=== PATIENT | female | born 1995 | race Caucasian/White ===

== ENCOUNTER → 2017-06-10 | Outpatient (CLI) | payer OTHER ==
[2017-06-10 19:25] LABS: BASO % 0.3 % (0.0-1.0); EOS # 0.1 10^3/uL (0.0-0.50); EOS % 0.9 % (0.0-3.0); HEMATOCRIT 35.2 % (36.0-47.0); HEMOGLOBIN 11.2 g/dl (12.0-16.0); IMMATURE GRANULOCYTE # 0.1 10^3/uL (0-0); IMMATURE GRANULOCYTE % 0.6 % (0-0); LYMPH # 2.2 10^3/uL (1.5-6.5); LYMPH % 20.5 % (24.0-44.0); MEAN CORPUSCULAR HEMOGLOBIN 28.9 pg (27.0-33.0); MEAN CORPUSCULAR HGB CONC 31.8 g/dl (32.0-36.5); MONO # 0.6 10^3/uL (0.0-0.8); MONO % 5.2 % (0.0-5.0); NEUTROPHILS # 7.8 10^3/uL (1.8-7.7); NEUTROPHILS % 72.5 % (36.0-66.0); PLATELET COUNT, AUTOMATED 211 10^3/uL (150-450); RED BLOOD COUNT 3.87 10^6/uL (4.00-5.40); RED CELL DISTRIBUTION WIDTH 12.4 % (11.5-14.5); WHITE BLOOD COUNT 10.8 10^3/uL (4.0-10.0)
[2017-06-10 19:47] LABS: GLUCOSE CHALLENGE TEST 1 HOUR 108 MG/DL (LESS THAN 140)
== END ==
LOC: M SMT 13:29
DX: Z34.83 Encounter for supervision of other normal pregnancy, third trimester (principal)
CPT/HCPCS: 82950

== ENCOUNTER → 2017-07-10 | Outpatient (CLI) | payer OTHER ==
[2017-07-12 10:37] LABS: HEPATITIS C VIRUS ABY INDEX 0.1 INDEX (<0.8)
== END ==
LOC: M SMT 14:40
DX: Z36.89 Encounter for other specified antenatal screening (principal); Z3A.00 Weeks of gestation of pregnancy not specified
CPT/HCPCS: 86803

== ENCOUNTER → 2017-08-01 | Outpatient (REF) | payer OTHER | LOC: M LAB REF 17:15 | DX: Z34.83 Encounter for supervision of other normal pregnancy, third trimester (principal); Z36.85 Encounter for antenatal screening for Streptococcus B ==

== ENCOUNTER 2017-08-16 03:21 | Inpatient (IN) | payer OTHER ==
[2017-08-16] MEDS ORDERED: LR 1,000 ML IV (04:09)
[2017-08-16 04:35] LABS: HEMATOCRIT 33.1 % (36.0-47.0); HEMOGLOBIN 10.8 g/dl (12.0-15.5); MEAN CORPUSCULAR HGB CONC 32.6 g/dl (32.0-36.5); MEAN CORPUSCULAR VOLUME 85.8 fl (80.0-96.0); PLATELET COUNT, AUTOMATED 152 10^3/uL (150-450); RED BLOOD COUNT 3.86 10^6/uL (4.00-5.40); RED CELL DISTRIBUTION WIDTH 12.8 % (11.5-14.5); WHITE BLOOD COUNT 11.2 10^3/uL (4.0-10.0)
[2017-08-16 10:06] LABS: HBSAG L&D NEGATIVE (NEGATIVE)
[2017-08-16] MEDS: OXYTOCIN INJ 10 UNITS/ML VIAL (J2590) IM (13:46)
[2017-08-16] MEDS ORDERED: DIBUCAINE 1% OINTMENT 30GM TOP (14:00)
[2017-08-16] MEDS ORDERED: ANUSOL HC CREAM 30GM TOP (14:00)
[2017-08-16] MEDS ORDERED: ONDANSETRON 4MG/2ML VIAL (J2405) IV (14:00)
[2017-08-16] MEDS ORDERED: DOCUSATE SODIUM 100 MG CAP PO (14:00)
[2017-08-16] MEDS: ACETAMINOPHEN 500 MG TAB PO ×2 (14:10→21:20)
[2017-08-16] MEDS ORDERED: METHYLERGONOVINE MALEATE 0.2 MG/ML VIAL (J2210) As Ordered (14:40)
[2017-08-16] MEDS: METHYLERGONOVINE MALEATE 0.2 MG/ML VIAL (J2210) IM (14:47)
[2017-08-16] MEDS: LACTATED RINGER'S 1000 ML IV (16:41)
[2017-08-16] MEDS: PRENATAL VITAMINS CHEWABLE TABLET PO (17:08)
[2017-08-16] MEDS: METHYLERGONOVINE MALEATE 0.2 MG TAB PO ×2 (17:14→21:20)
[2017-08-16] MEDS: IBUPROFEN 800 MG TAB PO (18:04)
[2017-08-17] MEDS: IBUPROFEN 800 MG TAB PO ×3 (01:23→17:21)
[2017-08-17] MEDS: METHYLERGONOVINE MALEATE 0.2 MG TAB PO ×2 (01:23→05:21)
[2017-08-17] MEDS: ACETAMINOPHEN 500 MG TAB PO (05:21)
[2017-08-17] MEDS: RHOGAM 300 MCG (1500 IU) INJ (J2790) IM (07:17)
[2017-08-17] MEDS: MEASLES,MUMPS,RUBELLA VACCINE INJ (MMR-II) (90707) SC (07:17)
[2017-08-17] MEDS: PRENATAL VITAMINS CHEWABLE TABLET PO (09:09)
[2017-08-18] MEDS: IBUPROFEN 800 MG TAB PO (06:22)
[2017-08-18] MEDS: PRENATAL VITAMINS CHEWABLE TABLET PO (08:52)
== END 2017-08-18 11:50 | disposition home or self-care (01) | DRG 775 ==
LOC: M LDO 03:21 → M LDI 04:09 → M OBS 16:44
PROVIDERS: Obstetrics & Gynecology
PROC: 10E0XZZ Delivery of Products of Conception, External Approach (ICD-10-PCS; principal; 2017-08-16)
DX: O80 Encounter for full-term uncomplicated delivery (principal); Z3A.38 38 weeks gestation of pregnancy; Z37.0 Single live birth

== ENCOUNTER → 2017-10-04 | Outpatient (CLI) | payer OTHER ==
[2017-10-04 18:12] LABS: HEMATOCRIT 38.7 % (36.0-47.0); HEMOGLOBIN 11.9 g/dl (12.0-15.5); MEAN CORPUSCULAR HEMOGLOBIN 26.6 pg (27.0-33.0); MEAN CORPUSCULAR HGB CONC 30.7 g/dl (32.0-36.5); MEAN CORPUSCULAR VOLUME 86.4 fl (80.0-96.0); PLATELET COUNT, AUTOMATED 255 10^3/uL (150-450); RED BLOOD COUNT 4.48 10^6/uL (4.00-5.40); RED CELL DISTRIBUTION WIDTH 13.7 % (11.5-14.5); WHITE BLOOD COUNT 8.2 10^3/uL (4.0-10.0)
[2017-10-04 18:45] LABS: THYROID STIMULATING HORMONE 0.355 uIU/ML (0.358-3.740)
== END ==
LOC: M SMT 13:56
DX: R53.83 Other fatigue (principal)
CPT/HCPCS: 84443

== ENCOUNTER 2017-10-29 13:21 | Emergency (ER) | payer OTHER ==
[2017-10-29] MEDS: NORCO, ANEXSIA 5/325MG TABLET (HYDROcodone/ACETAMINOPHEN) PO (14:25)
== END 2017-10-29 14:52 | disposition home or self-care (01) ==
LOC: M ED 13:21
DX: S80.11XA Contusion of right lower leg, initial encounter (principal); W23.0XXA Caught, crushed, jammed, or pinched between moving objects, initial encounter; Y92.410 Unspecified street and highway as the place of occurrence of the external cause; N80.9 Endometriosis, unspecified; F41.9 Anxiety disorder, unspecified; F33.9 Major depressive disorder, recurrent, unspecified; Z79.899 Other long term (current) drug therapy; Z88.0 Allergy status to penicillin; Z88.1 Allergy status to other antibiotic agents; Z88.2 Allergy status to sulfonamides; Z88.5 Allergy status to narcotic agent; Z88.8 Allergy status to other drugs, medicaments and biological substances
CPT/HCPCS: 73552

== ENCOUNTER → 2017-12-04 | Outpatient (REF) | payer OTHER | LOC: M LAB REF 17:28 | DX: J02.9 Acute pharyngitis, unspecified (principal) ==

== ENCOUNTER 2018-05-13 11:59 | Emergency (ER) | payer OTHER ==
[~2018-05-13] VITALS: Ht 167.6 cm; Wt 65.9 kg
[~2018-05-13 11:59] MED LIST: IBUP-1022 PO; IBUP-1114 PO; MAPA500T17 PO; PRENTAB9 PO; TYLE500T78 PO; ZOLO50TA PO
[2018-05-13] MEDS ORDERED: SODIUM BICARBONATE 4 % INJ 2.4MEQ 5 ML VIAL (THIS HAS A PRESERVATIVE) SC ONE (12:45)
[2018-05-13] MEDS ORDERED: LIDOCAINE 1% MDV 20ML VIAL SC ONE (12:45)
[2018-05-13] MEDS ORDERED: ADACEL/BOOSTRIX VACCINE (DIPHTH/PERTUSS/ACELL/TETANUS)0.5ML SYR (90715) IM ONE (12:45)
[2018-05-13] MEDS ORDERED: IBUP80TA PO (13:41)
[2018-05-13] MEDS ORDERED: IBUPROFEN 800 MG TAB PO ONE (13:45)
[2018-05-13 13:48] VITALS: BP 111/64
== END 2018-05-13 14:01 | disposition home or self-care (01) ==
LOC: M ED 11:59
DX: S61.012A Laceration without foreign body of left thumb without damage to nail, initial encounter (principal); W26.0XXA Contact with knife, initial encounter; Y92.098 Other place in other non-institutional residence as the place of occurrence of the external cause; Z88.2 Allergy status to sulfonamides; Z88.1 Allergy status to other antibiotic agents; Z88.5 Allergy status to narcotic agent; Z88.0 Allergy status to penicillin

== ENCOUNTER → 2018-09-18 | Outpatient (CLI) | payer OTHER ==
[~2018-09-18] MED LIST changes: +IBUP80TA PO; -MAPA500T17 PO; +MAPA500T2 PO
[2018-09-18 17:50] LABS: BASO % 0.5 % (0.0-1.0); EOS # 0.1 10^3/uL (0.0-0.50); EOS % 1.6 % (0.0-3.0); HEMOGLOBIN 11.8 g/dl (12.0-15.5); LYMPH # 2.5 10^3/uL (1.5-6.5); LYMPH % 33.7 % (24.0-44.0); MEAN CORPUSCULAR HEMOGLOBIN 27.5 pg (27.0-33.0); MEAN CORPUSCULAR HGB CONC 31.9 g/dl (32.0-36.5); MEAN CORPUSCULAR VOLUME 86.2 fl (80.0-96.0); MONO # 0.5 10^3/uL (0.0-0.8); MONO % 7.3 % (0.0-5.0); NEUTROPHILS # 4.2 10^3/uL (1.8-7.7); NEUTROPHILS % 56.8 % (36.0-66.0); PLATELET COUNT, AUTOMATED 282 10^3/uL (150-450); RED BLOOD COUNT 4.29 10^6/uL (4.00-5.40); WHITE BLOOD COUNT 7.4 10^3/uL (4.0-10.0)
[2018-09-18 18:01] LABS: INR 1.01; PROTHROMBIN TIME 13.4 SECONDS (12.1-14.4)
[2018-09-18 18:02] LABS: PARTIAL THROMBOPLASTIN TIME 33.6 SECONDS (25.4-37.6)
[2018-09-18 18:04] LABS: COLLAGEN EPINEPHRINE 194 SECONDS (74-162)
[2018-09-18 18:52] LABS: COLLAGEN ADP 121 SECONDS (56-103)
== END ==
LOC: M SMT 14:38
PROVIDERS: ATTEND Physician Assistant
DX: D68.8 Other specified coagulation defects (principal)

== ENCOUNTER 2018-09-21 19:10 | Emergency (ER) | payer OTHER ==
[~2018-09-21] VITALS: Ht 167.6 cm; Wt 68.2 kg
[2018-09-21] MEDS ORDERED: METOCLOPRAMIDE INJ 10MG/2ML VIAL (J2765) IV ONE (20:15)
[2018-09-21] MEDS ORDERED: MORPHINE 4 MG/ML 1ML VIAL/SYRINGE (J2270) IV ONE ×2 (20:15→23:00)
[2018-09-21] MEDS ORDERED: NS 1,000 ML IV ONE (20:15)
[2018-09-21 21:26] LABS: BASO % 0.3 % (0.0-1.0); HEMATOCRIT 39.9 % (36.0-47.0); HEMOGLOBIN 12.6 g/dl (12.0-15.5); LYMPH # 0.7 10^3/uL (1.5-6.5); LYMPH % 22.8 % (24.0-44.0); MEAN CORPUSCULAR HEMOGLOBIN 27.5 pg (27.0-33.0); MEAN CORPUSCULAR HGB CONC 31.6 g/dl (32.0-36.5); MEAN CORPUSCULAR VOLUME 86.9 fl (80.0-96.0); MONO # 0.1 10^3/uL (0.0-0.8); MONO % 3.8 % (0.0-5.0); NEUTROPHILS # 2.1 10^3/uL (1.8-7.7); NEUTROPHILS % 72.8 % (36.0-66.0); PLATELET COUNT, AUTOMATED 184 10^3/uL (150-450); RED BLOOD COUNT 4.59 10^6/uL (4.00-5.40); WHITE BLOOD COUNT 2.9 10^3/uL (4.0-10.0)
[2018-09-21 22:17] LABS: ALBUMIN 3.5 GM/DL (3.2-5.2); ALT/SGPT 18 U/L (12-78); BILIRUBIN,TOTAL 0.3 MG/DL (0.2-1.0); BLOOD UREA NITROGEN 8 MG/DL (7-18); CALCIUM LEVEL 8.3 MG/DL (8.5-10.1); CARBON DIOXIDE LEVEL 24 MEQ/L (21-32); CHLORIDE LEVEL 107 MEQ/L (98-107); CREATININE FOR GFR 0.75 MG/DL (0.55-1.30); GLOMERULAR FILTRATION RATE > 60.0 (>60); GLUCOSE, FASTING 99 MG/DL (70-100); HCG, SERUM QUANTITATIVE 2177 MIU/ML; POTASSIUM SERUM 4.5 MEQ/L (3.5-5.1); SODIUM LEVEL 137 MEQ/L (136-145); TOTAL PROTEIN 6.9 GM/DL (6.4-8.2)
--- NOTE | 2018-09-21 22:34 | REPVR ---
EXAM: US First Trimester, Transabdominal EXAM DATE/TIME: 09/21/2018 9:37 PM CLINICAL HISTORY: 22 years old, female; complicated by abdominal or pelvic pain; Lower; First trimester; Gestational age or lmp: Lmp 07/23/18; ; Additional info: Early preg, pelvic pain TECHNIQUE: Imaging protocol: Real-time transabdominal obstetrical ultrasound of the maternal pelvis and a first trimester , less than 14 weeks 0 days, with image documentation. COMPARISON: No relevant prior studies available. FINDINGS: Transabdominal and endovaginal imaging was performed. Well defined endometrial fluid collection suggests early gestational sac. Mean sac diameter is 4.6 mm. No evidence of implantational hemorrhage. Yolk sac is not visualized. No identifiable pole at this point. Right ovary measures 4.2 x 2 by 2.3 cm and demonstrates normal Doppler flow. Left ovary measures 3.8 x 2.0 x 2.6 and demonstrates normal Doppler flow. Likely corpus luteum cyst left ovary, 2.1 cm Moderate free pelvic fluid and no abnormal adnexal mass. IMPRESSION: Probable early intrauterine at 5 weeks 2 days estimated gestational age. No pole is identified at this point. Follow-up with repeat ultrasound and serial beta-hCG measurements is recommended, as indicated clinically. Nonspecific moderate pelvic free fluid No ancillary evidence of ectopic . Electronically signed by: Amadou Díaz On 09/21/2018 22:34:02 PM
[2018-09-21 22:58] VITALS: BP 109/58
== END 2018-09-21 23:38 | disposition home or self-care (01) ==
LOC: M ED 19:10
DX: O26.891 Other specified pregnancy related conditions, first trimester (principal); R10.2 Pelvic and perineal pain; O99.341 Other mental disorders complicating pregnancy, first trimester; F33.9 Major depressive disorder, recurrent, unspecified; Z3A.01 Less than 8 weeks gestation of pregnancy; Z88.0 Allergy status to penicillin; Z88.1 Allergy status to other antibiotic agents; Z88.2 Allergy status to sulfonamides; Z88.5 Allergy status to narcotic agent; Z88.8 Allergy status to other drugs, medicaments and biological substances
CPT/HCPCS: 76801; 76817; 80053; 81001; 84702; 85025; 86901; 87086; 93976; 96374; 96375; 96376; 99284; J2270; J2765

== ENCOUNTER → 2018-10-14 | Outpatient (CLI) | payer OTHER ==
[2018-10-14 20:06] LABS: BASO % 0.5 % (0.0-1.0); EOS # 0.1 10^3/uL (0.0-0.50); EOS % 1.1 % (0.0-3.0); HEMOGLOBIN 11.2 g/dl (12.0-15.5); LYMPH # 2.7 10^3/uL (1.5-6.5); LYMPH % 35.6 % (24.0-44.0); MEAN CORPUSCULAR HEMOGLOBIN 27.1 pg (27.0-33.0); MEAN CORPUSCULAR HGB CONC 31.1 g/dl (32.0-36.5); MEAN CORPUSCULAR VOLUME 87.2 fl (80.0-96.0); MONO # 0.5 10^3/uL (0.0-0.8); MONO % 6.2 % (0.0-5.0); NEUTROPHILS # 4.3 10^3/uL (1.8-7.7); NEUTROPHILS % 56.5 % (36.0-66.0); PLATELET COUNT, AUTOMATED 290 10^3/uL (150-450); RED BLOOD COUNT 4.13 10^6/uL (4.00-5.40); WHITE BLOOD COUNT 7.6 10^3/uL (4.0-10.0)
[2018-10-14 21:18] LABS: CHLAMYDIA DNA AMPLIFICATION NEGATIVE (NEGATIVE); GC DNA AMPLIFICATION NEGATIVE (NEGATIVE)
[2018-10-15 10:45] LABS: HEPATITIS C VIRUS ABY INDEX 0.1 INDEX (<0.8); HIV 1&2 SCREEN CENTAUR NEGATIVE (NEGATIVE); RUBELLA IgG QUALITATIVE IMMUNE (IMMUNE)
== END ==
LOC: M SMT 13:52
PROVIDERS: ATTEND Obstetrics & Gynecology
DX: Z34.80 Encounter for supervision of other normal pregnancy, unspecified trimester (principal); Z3A.08 8 weeks gestation of pregnancy

== ENCOUNTER → 2018-12-29 | Outpatient (CLI) | payer OTHER ==
[~2018-12-29] MED LIST changes: +FERR325T81 PO; +TUMS500C PO
== END ==
LOC: M SMT 15:35
PROVIDERS: ATTEND Advanced Practice Midwife
DX: Z36.89 Encounter for other specified antenatal screening (principal)

== ENCOUNTER → 2018-12-29 | Outpatient (CLI) | payer OTHER ==
[~2018-12-29] MED LIST changes: -FERR325T81 PO; -TUMS500C PO
--- NOTE | 2018-12-30 09:01 | REP ---
OBSTETRIC SONOGRAPHY: HISTORY: Supervision of for anatomy. FINDINGS: Scanning through the gravid uterus demonstrates a viable single intrauterine gestation in a cephalic lie. motion is observed and heart rate is recorded at 147 beats per minute. A posterior grade 0 placenta is seen without evidence of previa or abruption. Amniotic fluid is subjectively normal. Closed cervical length measures 3.8 cm. No extrauterine abnormalities observed. No anomaly is seen. The following anatomic structures are identified and felt to be unremarkable: cranium, choroid plexus, cavum, cerebellum and posterior fossa, face and profile, lungs, four-chamber heart with left and right ventricular outflow tract views, diaphragm, left-sided stomach, abdominal wall cord insertion, three-vessel umbilical cord, kidneys and bladder, spine, upper and lower extremities. Biometry Chart: BPD 4.4 cm = 19 weeks 2 days HC 16.5 cm = 19 weeks 1 day AC 14.1 cm = 19 weeks 3 days FL 3.0 cm = 19 weeks 2 days HL 2.7 cm = 18 weeks 4 days HC/AC ratio normal 1.17. Cephalic index normal 0.74. Estimated weight 289 grams, 0 pounds 10 ounces, 72nd percentile for 18 weeks 5 days. IMPRESSION: Viable single intrauterine gestation at 19 weeks 1 day by today's composite sonographic criteria. CLAUDETTE by today's sonography May 24, 2019. The anatomic survey is felt to be complete. Electronically Signed by Michele Camarena MD 12/30/2018 07:28 P
== END ==
LOC: M RAD 16:26
PROVIDERS: ATTEND Advanced Practice Midwife
DX: Z34.82 Encounter for supervision of other normal pregnancy, second trimester (principal); Z3A.19 19 weeks gestation of pregnancy

== ENCOUNTER → 2019-03-05 | Outpatient (CLI) | payer OTHER ==
[2019-03-05 17:40] LABS: HEMATOCRIT 31.5 % (36.0-47.0); HEMOGLOBIN 9.9 g/dl (12.0-15.5); MEAN CORPUSCULAR HEMOGLOBIN 28.6 pg (27.0-33.0); MEAN CORPUSCULAR HGB CONC 31.4 g/dl (32.0-36.5); PLATELET COUNT, AUTOMATED 190 10^3/uL (150-450); RED BLOOD COUNT 3.46 10^6/uL (4.00-5.40)
== END ==
LOC: M SMT 13:33
PROVIDERS: ATTEND Obstetrics & Gynecology
DX: Z34.82 Encounter for supervision of other normal pregnancy, second trimester (principal); Z36.89 Encounter for other specified antenatal screening

== ENCOUNTER → 2019-04-30 | Outpatient (REF) | payer OTHER | LOC: M SFHCWAGY 12:48 | PROVIDERS: ATTEND Advanced Practice Midwife | DX: Z34.93 Encounter for supervision of normal pregnancy, unspecified, third trimester (principal) ==

== ENCOUNTER 2019-05-08 12:15 | Outpatient (CLI) | payer OTHER ==
[~2019-05-08] VITALS: Ht 167.6 cm; Wt 87.2 kg
[2019-05-08 12:25] VITALS: BP 136/75
[2019-05-08] MEDS ORDERED: TUMS500C PO (12:28)
--- NOTE | 2019-05-08 13:15 | IPNPDOC ---
Text Note Date of Service The patient was seen on 05/08/19. NOTE Outpatient Evaluated on L&D. Reports UC most of the night last night, stronger since 0900. Denies LOF or bleeding. Fetus is active. Yesterday in office, had UC ever 3-5 minutes. SVE then was 3+/50/-3. Appears mildly uncomfortable UC difficult to trace, pt reports every 2-3 minutes for the last hour or so Cat I tracing, fetus active SVE - presenting part descending, cervix far posterior, unable to reach at this time Will ambulate and reassess. VS,Fishbone, I+O VS, Fishbone, I+O Vital Signs Date Time Temp Pulse Resp B/P (MAP) Pulse Ox O2 Delivery O2 Flow Rate FiO2 05/08/19 12:25 98.0 98 18 136/75 (95) Azalea Chacon CNM May 08, 2019 13:15
[2019-05-08 13:47] VITALS: BP 131/68
[2019-05-08 14:47] VITALS: BP 121/56
[2019-05-08] MEDS ORDERED: BUTORPHANOL 2 MG/ML INJ (J0595) IV ONE (15:15)
[2019-05-08] MEDS ORDERED: PROMETHAZINE INJ 25 MG/ML VIAL (J2550) IV ONE (15:15)
[2019-05-08] MEDS ORDERED: LACTATED RINGER'S 1000 ML IV ONE (15:15)
--- NOTE | 2019-05-08 15:17 | IPNPDOC ---
Text Note Date of Service The patient was seen on 05/08/19. NOTE Outpatient Pt continues to report UC. Difficult to trace. Cat I tracing. SVE 3+/60/-3, essentially unchanged from yesterday Unable to augment labor due to gestation of 37w1d Therapeutic rest offered and accepted. VS,Fishbone, I+O VS, Fishbone, I+O Vital Signs Date Time Temp Pulse Resp B/P (MAP) Pulse Ox O2 Delivery O2 Flow Rate FiO2 05/08/19 13:47 86 18 131/68 (89) 05/08/19 12:25 98.0 Azalea Chacon CNM May 08, 2019 15:17
[2019-05-08 15:53] VITALS: BP 123/65
[2019-05-08 18:35] VITALS: BP 121/58
--- NOTE | 2019-05-08 18:50 | IPNPDOC ---
Text Note Date of Service The patient was seen on 05/08/19. NOTE Has slept well. Reports UC have diminished and frequency and intensity. SVE unchanged. FH 130, minimal variability due to stadol, irregular UC Once strip is reactive, will discharge home with instructions to call with increased DIVINE, daily FKC, warnings Keep appt next week. VS,Fishbone, I+O VS, Fishbone, I+O Vital Signs Date Time Temp Pulse Resp B/P (MAP) Pulse Ox O2 Delivery O2 Flow Rate FiO2 05/08/19 18:35 70 18 121/58 (79) 05/08/19 15:53 97.2 Azalea Chacon CNM May 08, 2019 18:50
== END 2019-05-08 19:57 | disposition home or self-care (01) ==
LOC: M LDO 12:15
PROVIDERS: ATTEND Advanced Practice Midwife
DX: O26.893 Other specified pregnancy related conditions, third trimester (principal); O47.1 False labor at or after 37 completed weeks of gestation; Z3A.37 37 weeks gestation of pregnancy
CPT/HCPCS: 59025; 96374; 96375; G0378; G0463; J0595

== ENCOUNTER 2019-05-18 11:36 | Inpatient (IN) | payer OTHER ==
[2019-05-18] VITALS (12 sets, daily range): BP systolic 117–144; BP diastolic 64–86
[~2019-05-18] VITALS: Ht 167.6 cm; Wt 89.1 kg
[~2019-05-18 11:36] MED LIST changes: +TUMS500C PO
[2019-05-18] MEDS ORDERED: FERR325T81 PO (12:07)
[2019-05-18 15:15] LABS: HEMATOCRIT 36.6 % (36.0-47.0); HEMOGLOBIN 11.1 g/dl (12.0-15.5); MEAN CORPUSCULAR HEMOGLOBIN 26.1 pg (27.0-33.0); MEAN CORPUSCULAR HGB CONC 30.3 g/dl (32.0-36.5); MEAN CORPUSCULAR VOLUME 86.1 fl (80.0-96.0); PLATELET COUNT, AUTOMATED 174 10^3/uL (150-450); RED BLOOD COUNT 4.25 10^6/uL (4.00-5.40); WHITE BLOOD COUNT 10.7 10^3/uL (4.0-10.0)
--- NOTE | 2019-05-18 17:39 | HPEPDOC ---
Obstetrical History & Physical General Date of Admission May 18, 2019 at 12:04 Primary Care Physician: CANDELARIA RAMON CNM History of Present Illness Patient is a 23-year-old female who is a at 38.5 weeks gestation with an CLAUDETTE of 05/27/19 based off of her first trimester ultrasound. She initiated care in her first trimester with [facility]. Her care has been uncomplicated. She presents to L&D with complaints of contractions that are every 4-5 minutes that started at 0630 this morning. She reports active movement. She denies leaking of fluid or vaginal bleeding. Chief Complaint: Contractions, term, Active Labor Information Provided By: Patient Age: 23 : 3 Term: 2 Pre-term: 0 Abortions: 0 Livin Care Care: Good Care Dating Final EDC: May 27, 2019 Final EDC by: 1st trimester (US) EGA at Admission: 38.5 Antepartum Course Height (inches): 66 Pre- weight (lbs.): 148 Admission Weight (lbs.): 192 Change in Weight (lbs.): 44 Past Medical History Past Obstetrical History #1: Past Obstetrical History: Primgravida Gestation: 38.5 Type of Delivery: Spontaneous Vaginal Del. (March 2014) Sex of : Female (weight 7 lbs 5 oz.) Complications: No Past Obstetrical History #2: Past Obstetrical History: Multigravida Gestation: 38.3 Type of Delivery: Spontaneous Vaginal Del. (July 2017) Sex of : Male (7 lbs 12 oz.) Complications: Yes (PPH) Past Medical History Medical History endometriosis Surgical History: Diagnostic laparoscopy, Dilatation and Curettage, Hartshorn teeth Family History Significant Family History: Heart disease, Hypertension Social History Marital Status: Family situation: Spouse/partner home Psychosocial History: No pertinent psych hx * Smoker: non-smoker Alcohol: Denies Drugs: denies Abuse Violence Screening Have you been hit/kicked/slapp: No Have you been sexually assault: No Imunizations Tdap status: current Influenza Status: declined Allergies Coded Allergies: Penicillins (Verified Allergy, Intermediate, rash, 05/08/19) azithromycin (Verified Allergy, Intermediate, rash, 05/08/19) sulfamethoxazole (Verified Adverse Reaction, Unknown, nausea, 05/08/19) tramadol (Verified Adverse Reaction, Unknown, nausea , 05/08/19) trimethoprim (Verified Adverse Reaction, Unknown, nausea, 05/08/19) Medications Scheduled Calcium Carbonate (Tums) 200 Mg Tab.chew, 2 TAB PO PRN Ferrous Sulfate (Iron) 325 Mg Tablet, 1 TAB PO DAILY No.137/Iron/Folic Acd ( Vitamin Tablet) 1 Tab Tab, 1 TAB PO DAILY Physical Examination Physical Examination GENERAL: Alert and oriented times three. BREAST: . ABDOMEN: Gravid and non-tender to touch. FETUS: Is vertex (VTX) by sterile vaginal examination (SVE), fetus is vertex (VTX) by Cong. HEART RATE: Regular rate and rhythm. LUNGS: Clear to auscultation (CTA). EXTREMITIES: No edema. No clonus. Deep tendon reflexes (DTRs) + 2. Vital Signs/I&O Vital Signs Date Time Temp Pulse Resp B/P (MAP) Pulse Ox O2 Delivery O2 Flow Rate FiO2 05/18/19 16:25 98.4 127 18 118/73 (88) Laboratory Data 24H LABS Laboratory Tests 2 05/18/19 12:05: Serology Scanned Report Hepatitis B Testing 05/18/19 14:19: Nucleated Red Blood Cells % (auto) 0.0, Syphilis Serology NONREACTIVE CBC/BMP Laboratory Tests 05/18/19 14:19 Urine Culture: No Growth Pertinent Laboratoy Data Blood Type: A+ RBC Antibody Screen: Negative HIV: Negative Hepatitis B: Negative Hepatitis C: Negative Rapid Plasma Reagin: Immune Rubella: Nonreactive Chlamydia/Gonorrhea: Negative Group B Streptococcus: Negative Glucose Tolerance Test: 108 Anatomy Ultrasound Ultrasound Date: Dec 29, 2018 Placenta Location: Posterior Normal Anatomy: Yes Placenta Previa: No Vaginal Examination Dilation: 5 cm (5-6 cm) Effacement: 90% Station: -1 Cervical Consistency: Soft Cervical Position: Middle Presentation: Cephalic presentation Position: Vertex (occiput) Assessment Heart Rate (FHR): 130 Variability: Moderate Accelerations: Positive Decelerations: None Tocometer Contractions: Yes Frequency: regular Assessment/Plan Assessment IUP at at 38.5 weeks gestation active labor at term GBS negative Category I FHR tracing Plan Admit to L&D. OOB ad ambreen. Diet: regular. Group B Streptococcus (GBS) negative. Labs and intravenous (IV) per unit protocol. Lactated Ringers (LR): bolus if needed. Will do prophylactic medications to help decrease risk of hemorrhage due to her history of PPH with last child. Anticipate normal spontaneous delivery (). CANDELARIA RAMON CNM May 18, 2019 17:39
[2019-05-18] MEDS ORDERED: OXYTOCIN 30 UNITS IN 0.9% NaCl 500ML IV BAG (J2590) As Ordered ONE (19:42)
[2019-05-18] MEDS ORDERED: METHYLERGONOVINE MALEATE 0.2 MG/ML VIAL (J2210) As Ordered ONE (19:43)
[2019-05-18] MEDS ORDERED: OXYTOCIN DRIP 30 UNITS in IV 1 EA IV SCH (21:14)
[2019-05-18] MEDS ORDERED: RHOGAM 300 MCG (1500 IU) INJ (J2790) IM SCH (21:15)
[2019-05-18] MEDS ORDERED: MEASLES,MUMPS,RUBELLA VACCINE INJ (MMR-II) (90707) SC SCH (21:15)
[2019-05-18] MEDS ORDERED: DOCUSATE SODIUM 100 MG CAP PO PRN (21:15)
[2019-05-18] MEDS ORDERED: DIBUCAINE 1% OINTMENT 30GM TOP PRN (21:15)
[2019-05-18] MEDS ORDERED: IBUPROFEN 600 MG TAB PO PRN (21:15)
[2019-05-18] MEDS ORDERED: ANUSOL HC CREAM 30GM TOP PRN (21:15)
[2019-05-18] MEDS ORDERED: ACETAMINOPHEN TAB 650MG DOSE (2X325MG) PO PRN (21:15)
[2019-05-18] MEDS ORDERED: METHYLERGONOVINE MALEATE 0.2 MG TAB PO PRN (21:15)
--- NOTE | 2019-05-18 21:31 | DNPDOC ---
[facility] Delivery Note Delivery Note DATE OF DELIVERY: 05/18/19 at 2045 PREDELIVERY DIAGNOSIS: 38-5/7 weeks' gestation and labor. POST DELIVERY DIAGNOSIS: Delivered. PROCEDURE: Spontaneous vaginal delivery. ORDER MANAGEMENT SPECIALIST: Candelaria Poe CNM, VY ANESTHESIA: none. ESTIMATED BLOOD LOSS: 150 mL. FINDINGS: 8 pounds 5 ounces; 3760 grams, female , Score 9/9. DELIVERY SUMMARY: Patient is a 23-year-old female who is now a at 38.5 weeks who presented to L&D in active labor. She progressed to fully dilated at 2031 and pushed to a living male in the ROT position. No restitution. The an terior shoulder delivered with ease and the corpus immediately followed. The baby was placed on the maternal abdomen active and crying. The cord was clamped times 2 after pulsation ceased and cut by the FOB. The placenta delivered spontaneously and intact at 2054. Uterine hemostasis was achieved via rapid infusion of IV Pitocin, fundal massage and Methergine was given as prophylaxis due to her history of PPH with her last child. The vagina, cervix, and perineum was inspected and found to have a right labial abrasion that did not need to be repaired. Mom plans to breast feed her . Both mom and baby are in stable condition. All counts of instruments and sponges was correct. CANDELARIA POE CNM May 18, 2019 21:30
[2019-05-18] MEDS: IBUPROFEN 800 MG TAB PO PRN (21:37)
[2019-05-18] MEDS ORDERED: METHYLERGONOVINE MALEATE 0.2 MG/ML VIAL (J2210) IM ONE (21:45)
[2019-05-18] MEDS: ACETAMINOPHEN 500 MG TAB PO PRN (23:31)
[2019-05-19] VITALS: BP 141/82
[2019-05-19 05:46] VITALS: BP 136/85
[2019-05-19] MEDS: PRENATAL VITAMINS CHEWABLE TABLET PO SCH (07:39)
--- NOTE | 2019-05-19 08:01 | IPNPDOC ---
Progress Note Date of Service: May 19, 2019 Day#: 1 Progress Note SUBJECT: She has been ambulating, voiding spontaneously without issue and tolerating regular diet. Breast feeding without issue. Denies any preeclamptic symptoms. OBJECTIVE: VITAL SIGNS: Within normal limits, afebrile. Alert and oriented times three. Breath sounds clear to auscultation. Heart rate: Regular rate and rhythm, no murmurs, rubs or gallops. Abdomen: Fundus firm at U. Soft, NTTP. Minimal lochia. ASSESSMENT: Day 1 , elevated BP PLAN: 1. Continue with supportive nursing care. Preeclamptic labs ordered due to elevated BPs. 2. Anticipate discharge tomorrow. VS, I&O, 24H, Fishbone Vital Signs/I&O Vital Signs Date Time Temp Pulse Resp B/P (MAP) Pulse Ox O2 Delivery O2 Flow Rate FiO2 05/19/19 05:46 99.1 81 17 136/85 (102) 96 Room Air I&O- Last 24 Hours up to 6 AM 05/19/19 06:00 Output Total 550 ml Balance -550 ml Laboratory Data 24H LABS Laboratory Tests 2 05/18/19 12:05: Serology Scanned Report Hepatitis B Testing 05/18/19 14:19: Nucleated Red Blood Cells % (auto) 0.0, Syphilis Serology NONREACTIVE CBC/BMP Laboratory Tests 05/18/19 14:19 CANDELARIA RAMON CNM May 19, 2019 08:01
[2019-05-19 08:15] LABS: HEMATOCRIT 32.5 % (36.0-47.0); HEMOGLOBIN 10.4 g/dl (12.0-15.5); MEAN CORPUSCULAR HEMOGLOBIN 26.9 pg (27.0-33.0); PLATELET COUNT, AUTOMATED 163 10^3/uL (150-450); RED BLOOD COUNT 3.87 10^6/uL (4.00-5.40); WHITE BLOOD COUNT 14.8 10^3/uL (4.0-10.0)
[2019-05-19 08:40] LABS: ALT/SGPT 17 U/L (12-78); BILIRUBIN,TOTAL 0.2 MG/DL (0.2-1.0); CREATININE FOR GFR 0.68 MG/DL (0.55-1.30); GLOMERULAR FILTRATION RATE > 60.0 (>60); LDH LACTATE DEHYDROGENASE 273 U/L (84-246); URIC ACID 5.2 MG/DL (2.6-6.0)
[2019-05-19] MEDS: ACETAMINOPHEN 500 MG TAB PO PRN (10:13)
[2019-05-19] MEDS: IBUPROFEN 800 MG TAB PO PRN ×2 (17:23→23:57)
[2019-05-19 17:48] VITALS: BP 128/84
[2019-05-20 05:57] VITALS: BP 108/62
--- NOTE | 2019-05-20 06:41 | IPNPDOC ---
Progress Note Date of Service: May 20, 2019 Day#: 2 Progress Note SUBJECT: Patient is a 23-year-old 3 now Para 3-0-0-3 status post uncomplicated spontaneous vaginal delivery at 38-5/7 weeks' at approximately 2046 hours on 05/18/19 of a female 8 pounds 5 ounces (3760 grams) with right labial abrasion that did not require repair, doing well day # 2. She has been ambulating, voiding spontaneously without issue and tolerating regular diet. Breast feeding without issue. Reports lochia is like a normal period. Patient is ambulating well. Reports some cramping. Denies any pain. Voiding and stooling without difficulty in eating and drinking without difficulty. OBJECTIVE: VITAL SIGNS: Within normal limits, afebrile. Alert and oriented times three. Abdomen: Fundus firm at U-2. Soft, NTTP. Minimal lochia. ASSESSMENT: Patient is a 23-year-old 3 now Para 3-0-0-3 status post uncomplicated spontaneous vaginal delivery after presenting in active labor with spontaneous rupture of membranes (SROM), delivered at 2046 hours and 38-5/7 weeks', doing well on day 2. Vitals within normal limits, afebrile, hemodynamically stable with no evidence of infection. PLAN: 1. Discharge to home today. 2. Tylenol and Motrin for pain. 3. Encourage breast feeding and ambulation. 4. Routine PP visit in 6 weeks in clinic. VS, I&O, 24H, Fishbone Vital Signs/I&O Vital Signs Date Time Temp Pulse Resp B/P (MAP) Pulse Ox O2 Delivery O2 Flow Rate FiO2 05/20/19 05:57 98.0 62 17 108/62 (77) 97 Room Air I&O- Last 24 Hours up to 6 AM 05/20/19 06:00 Output Total 150 ml Balance -150 ml Laboratory Data 24H LABS Laboratory Tests 2 05/19/19 07:57: Nucleated Red Blood Cells % (auto) 0.0, Glomerular Filtration Rate > 60.0, Uric Acid 5.2, Total Bilirubin 0.2, Aspartate Amino Transf (AST/SGOT) 28, Alanine Aminotransferase (ALT/SGPT) 17, Lactate Dehydrogenase 273H CBC/BMP Laboratory Tests 05/19/19 07:57 GME ATTESTATION GME ATTESTATION My faculty preceptor for this patient encounter was physically present during the encounter and was fully available. All aspects of the patient interview, examination, medical decision making process, and medical care plan development were reviewed and approved by the faculty preceptor. The faculty preceptor is aware and concurs with the plan as stated in the body of this note and will attest to such by his/her cosignature. CHERI BARON DO May 20, 2019 06:41
[2019-05-20] MEDS: IBUPROFEN 800 MG TAB PO PRN (06:59)
[2019-05-20] MEDS: PRENATAL VITAMINS CHEWABLE TABLET PO SCH (09:03)
[2019-05-20] MEDS: ACETAMINOPHEN 500 MG TAB PO PRN (11:39)
== END 2019-05-20 13:30 | disposition home or self-care (01) | DRG 807 ==
LOC: M LDO 11:36 → M LDI 12:04 → M OBS 22:46
PROVIDERS: ADMIT Advanced Practice Midwife; ATTEND Advanced Practice Midwife
PROC: 10E0XZZ Delivery of Products of Conception, External Approach (ICD-10-PCS; principal; 2019-05-18)
DX: O80 Encounter for full-term uncomplicated delivery (principal); Z37.0 Single live birth; Z3A.38 38 weeks gestation of pregnancy